=== PATIENT | male | born 1940 | race Caucasian/White ===

== ENCOUNTER → 2024-01-27 09:51 | Outpatient (REF) | payer MEDICARE, SELFPAY | LOC: RAD 09:51 | PROVIDERS: ATTENDING PHYSICIAN Family Medicine | DX: R91.8 Other nonspecific abnormal finding of lung field (principal) | CPT/HCPCS: 71250 ==

== ENCOUNTER → 2024-03-04 10:42 | Outpatient (REF) | payer MEDICARE, SELFPAY | LOC: RAD 10:42 | PROVIDERS: ATTENDING PHYSICIAN Internal Medicine Critical Care Medicine; FAMILY PHYSICIAN Family Medicine | DX: J43.2 Centrilobular emphysema (principal) | CPT/HCPCS: 71046 ==

== ENCOUNTER → 2024-04-22 09:31 | Outpatient (REF) | payer MEDICARE, SELFPAY | LOC: RAD 09:31 | PROVIDERS: ATTENDING PHYSICIAN Internal Medicine Critical Care Medicine | DX: J43.2 Centrilobular emphysema (principal) | CPT/HCPCS: 71250 ==